=== PATIENT | female | born 1940 | race Caucasian/White ===

== ENCOUNTER → 2019-06-19 | Outpatient (CLI) | payer MEDICARE, OTHER ==
[~2019-06-19] MED LIST: ASPI-586 PO; ATOR80TA76 PO; CALC600T12 PO; CARV12.53 PO; ENAL20TA PO; EST30C VG; HYDR12.5 PO; LEVO112T55 PO; MULT-1029 PO; MULT1TAB12 PO; SITA1TAB6 PO
[2019-06-22 14:33] LABS: HEMATOCRIT 35 % (35-52); HEMOGLOBIN 11.2 G/DL (11.5-16.0); MEAN CORPUSCULAR HEMOGLOBIN 31 PG (25-34); MEAN CORPUSCULAR HGB CONC 32 G/DL (32-36); MEAN CORPUSCULAR VOLUME 97 FL (80-99); MEAN PLATELET VOLUME 10.8 FL (7.4-10.4); PLATELET COUNT 175 10^3/uL (130-400); RED CELL DISTRIBUTION WIDTH 13.1 % (10.0-14.5); WHITE BLOOD COUNT 13.3 10^3/uL (4.3-11.0)
[2019-06-22 14:34] LABS: BAND NEUTROPHILS 0 %; BASOPHILS % (AUTO) 0 % (0-10); EOSINOPHILS # (AUTO) 0.2 10^3/uL (0.0-0.3); EOSINOPHILS % (AUTO) 2 % (0-10); EOSINOPHILS % (MANUAL) 3 %; LYMPHOCYTES % (AUTO) 15 % (12-44); LYMPHOCYTES % (MANUAL) 20 %; MONOCYTES # (AUTO) 0.8 X 10^3 (0.0-1.0); MONOCYTES % (AUTO) 6 % (0-12); MONOCYTES % (MANUAL) 6 %; NEUTROPHILS # (AUTO) 10.2 X 10^3 (1.8-7.8); NEUTROPHILS % (AUTO) 77 % (42-75); NEUTROPHILS % (MANUAL) 70 %
[2019-06-22 14:35] LABS: BASOPHILS % (MANUAL) 1 %; RBC MORPH NORMAL; RETICULOCYTE % 1.01 % (0.50-2.40)
[2019-06-22 14:36] LABS: ABSOLUTE RETIC # 37 10e9/L (24-90)
== END ==
LOC: GIR 09:59
PROVIDERS: ATTEND Family Medicine
DX: D72.829 Elevated white blood cell count, unspecified (principal)
CPT/HCPCS: 85007; 85025; 85045

== ENCOUNTER → 2021-02-06 | Outpatient (CLI) | payer MEDICARE, OTHER ==
[~2021-02-06] MED LIST changes: -CALC600T12 PO; +CALC600T91 PO; -ENAL20TA PO; +ENAL20TA16 PO
--- NOTE | 2021-02-06 09:43 | Diagnostic Imaging Report ---
PROCEDURE: MRI lumbar spine. TECHNIQUE: Multiplanar, multisequence MRI of the lumbar spine was performed without contrast. INDICATION: Persistent pain after a fall a few months ago. COMPARISON: I have no relevant comparison. FINDINGS: There are predominately superior endplate fractures involving the L1 and L2 levels which are down about 50-60% in height at their middle third. The L1 fracture shows about 2 mm of retropulsion of its superior and inferior endplates. The L2 fracture shows about 3 mm of retropulsion of its superior greater than inferior endplate. There is very slight marrow edema associated with these fractures, suggestive of subacute injuries. A more mild compression deformity with no edema as a chronic finding at L4 is present. The remaining statures are normal. There is no paravertebral mass, hemorrhage, or fluid collection. No acute epidural abnormality. T12-L1: Retropulsion and degenerative changes to the endplates, discs, and facets result in mild spinal canal stenosis with mild left greater than right foraminal narrowing. L1-L2: Disc bulge, endplate osteophytes, facet arthrosis, and retropulsion result in moderate canal stenosis with mild to moderate left and mild right foraminal narrowing. L2-L3: Buckled thickened ligamenta flava, facet arthrosis, disc bulge, and endplate osteophytes result in severe central canal stenosis. There is severe right and moderate to severe left foraminal narrowing. L3-L4: Buckled thickened ligamenta flava, facet arthrosis, disc bulge, and endplate osteophytes result in severe canal stenosis. There is severe right and moderate left foraminal narrowing. L4-L5: Bulging disc material, facet arthrosis, and ligamentous thickening result in severe central canal stenosis. There is severe left and moderate right foraminal narrowing. L5-S1: There is only mild spinal canal stenosis with moderate left foraminal narrowing and mild right foraminal stenosis. IMPRESSION: 1. Likely late subacute mildly retropulsed endplate fractures at L1 and L2 which show mild marrow edema. 2. Nonedematous clearly old L4 compression fracture. 3. 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 Dictated by: Dictated on workstation # [id number]
== END ==
LOC: RAD 08:12
PROVIDERS: ATTEND Physician Assistant
DX: M48.56XA Collapsed vertebra, not elsewhere classified, lumbar region, initial encounter for fracture (principal); M47.814 Spondylosis without myelopathy or radiculopathy, thoracic region; M47.816 Spondylosis without myelopathy or radiculopathy, lumbar region; M51.26 Other intervertebral disc displacement, lumbar region; M51.34 Other intervertebral disc degeneration, thoracic region; M48.04 Spinal stenosis, thoracic region; M48.061 Spinal stenosis, lumbar region without neurogenic claudication; M48.07 Spinal stenosis, lumbosacral region; M25.78 Osteophyte, vertebrae
CPT/HCPCS: 72148

== ENCOUNTER → 2021-02-27 | Outpatient (CLI) | payer MEDICARE | LOC: LABNPT 08:36 | PROVIDERS: ATTEND Orthopaedic Surgery Orthopaedic Surgery of the Spine | DX: Z01.812 Encounter for preprocedural laboratory examination (principal); Z20.822 Contact with and (suspected) exposure to COVID-19 | CPT/HCPCS: 87635 ==

== ENCOUNTER → 2021-03-10 | Outpatient (CLI) | payer MEDICARE, OTHER | LOC: LABNPT 06:42 | PROVIDERS: ATTEND Orthopaedic Surgery Orthopaedic Surgery of the Spine | DX: Z01.812 Encounter for preprocedural laboratory examination (principal); Z20.822 Contact with and (suspected) exposure to COVID-19 | CPT/HCPCS: 87635 ==

== ENCOUNTER → 2021-08-11 | Outpatient (CLI) | payer MEDICARE, OTHER ==
[2021-08-11 15:29] LABS: ABSOLUTE RETIC # 44 10e9/uL (24-90)
[2021-08-11 16:08] LABS: BASOPHILS % (MANUAL) 1 %; EOSINOPHILS % (MANUAL) 1 %; LYMPHOCYTES % (MANUAL) 29 %; MONOCYTES % (MANUAL) 6 %; NEUTROPHILS % (MANUAL) 63 %; POIKILOCYTOSIS MODERATE
== END ==
LOC: GIR 15:17
PROVIDERS: ATTEND Family Medicine
DX: R79.0 Abnormal level of blood mineral (principal); Z01.89 Encounter for other specified special examinations
CPT/HCPCS: 85007; 85045; 85055

== ENCOUNTER → 2022-01-18 | Outpatient (CLI) | payer MEDICARE, OTHER | LOC: CARD 10:00 | PROVIDERS: ATTEND Nurse Practitioner | DX: I08.0 Rheumatic disorders of both mitral and aortic valves (principal); I25.10 Atherosclerotic heart disease of native coronary artery without angina pectoris | CPT/HCPCS: 93306 ==

== ENCOUNTER → 2022-07-04 | Outpatient (CLI) | payer MEDICARE, OTHER ==
[2022-07-04 12:25] LABS: ABSOLUTE RETIC # 83 10e9/uL (24-90); RETICULOCYTE % 2.11 % (0.50-2.40)
[2022-07-04 12:42] LABS: BASOPHILS % (AUTO) 1 % (0-10); EOSINOPHILS # (AUTO) 0.1 10^3/uL (0.0-0.3); EOSINOPHILS % (AUTO) 3 % (0-10); HEMATOCRIT 37 % (35-52); HEMOGLOBIN 12.5 g/dL (11.5-16.0); LYMPHOCYTES # (AUTO) 1.3 10^3/uL (1.0-4.0); LYMPHOCYTES % (AUTO) 41 % (12-44); MEAN CORPUSCULAR HEMOGLOBIN 32 pg (25-34); MEAN CORPUSCULAR HGB CONC 34 g/dL (32-36); MEAN CORPUSCULAR VOLUME 95 fL (80-99); MEAN PLATELET VOLUME 10.5 fL (9.0-12.2); MONOCYTES # (AUTO) 0.7 10^3/uL (0.0-1.0); MONOCYTES % (AUTO) 22 % (0-12); NEUTROPHILS % (AUTO) 32 % (42-75); PLATELET COUNT 141 10^3/uL (130-400); WHITE BLOOD COUNT 3.3 10^3/uL (4.3-11.0)
[2022-07-04 12:55] LABS: ATYPICAL LYMPHOCYTES 2 %; BASOPHILS % (MANUAL) 1 %; EOSINOPHILS % (MANUAL) 1 %; LYMPHOCYTES % (MANUAL) 46 %; MONOCYTES % (MANUAL) 12 %; NEUTROPHILS % (MANUAL) 35 %; REACTIVE LYMPHOCYTES 3 %
[2022-07-04 12:56] LABS: ACANTHOCYTES SLIGHT; ANISOCYTOSIS SLIGHT; BURR CELLS SLIGHT
== END ==
LOC: LABNPT 12:10
PROVIDERS: ATTEND Family Medicine
DX: Z01.89 Encounter for other specified special examinations (principal)
CPT/HCPCS: 85007; 85027; 85045; 85055